=== PATIENT | female | born 1940 | race Caucasian/White ===

== ENCOUNTER → 2018-03-25 | Outpatient (CLI) | payer OTHER | LOC: CIMAGING 09:34 | PROVIDERS: ATTEND Family Medicine | DX: M25.562 Pain in left knee (principal); I70.292 Other atherosclerosis of native arteries of extremities, left leg | CPT/HCPCS: 73562-PO ==

== ENCOUNTER → 2018-10-08 | Outpatient (CLI) | payer OTHER | LOC: CIMAGING 10:04 | PROVIDERS: ATTEND Family Medicine | DX: Z12.31 Encounter for screening mammogram for malignant neoplasm of breast (principal) ==